=== PATIENT | female | born 1980 | race Caucasian/White ===

== ENCOUNTER 2018-11-10 20:20 | Emergency (ER) | payer MEDICAID ==
[~2018-11-10] VITALS: Ht 175.3 cm; Wt 143.0 kg
[2018-11-10] MEDS ORDERED: ONDANSETRON HCL 4MG/2ML INJ IV STA (23:49)
[2018-11-10] MEDS ORDERED: MORPHINE SULFATE 4 MG/ML CPJ (NOT FOR IM USE) IV STA (23:49)
[2018-11-10] MEDS ORDERED: SODIUM CHLORIDE 0.9% 1,000 ML IV ONE (23:49)
[2018-11-11] MEDS ORDERED: PIPERACILLIN/TAZ 3.375G PREMIX 50 ML IV ONE
[2018-11-11] MEDS ORDERED: VANCOMYCIN 1 G PREMIX 200 ML IV ONE
[2018-11-11 00:22] LABS: BASOPHILS % 0.4 % (0.0-2.0); EOSINOPHILS % 1.7 % (0.0-5.0); HEMATOCRIT. 35.9 % (36.0-48.0); HEMOGLOBIN. 12.4 g/dL (12.0-16.0); LYMPHOCYTES % 54.5 % (20.0-50.0); MEAN CORPUSCULAR HEMOGLOBIN 30.6 pg (28.0-32.0); MEAN CORPUSCULAR VOLUME 88.7 fL (81.0-99.0); MEAN PLATELET VOLUME 8.5 fl (7.4-10.4); MONOCYTES % 6.2 % (2.0-8.0); NEUTROPHILS % 37.2 % (40.0-76.0); PLATELET 204 x1000/uL (130-400); RED BLOOD CELL COUNT 4.05 mill/uL (4.2-5.4); RED CELL DISTRIBUTION WIDTH 14.5 % (11.6-14.6)
[2018-11-11 00:31] LABS: CHLORIDE 106 mEq/L (98-107)
[2018-11-11 02:43] VITALS: BP 131/81
== END 2018-11-11 02:45 | disposition home or self-care (01) ==
LOC: ER 20:20
DX: L02.211 Cutaneous abscess of abdominal wall (principal); L03.311 Cellulitis of abdominal wall; E11.9 Type 2 diabetes mellitus without complications; R03.0 Elevated blood-pressure reading, without diagnosis of hypertension
CPT/HCPCS: 36415; 80053; 83605; 84145; 85025; 87040; 87070; 87077; 87086; 87186; 87205; 96365; 96366; 96368; 96375; 99283; J2270; J2405; J2543; J3370; J7030

== ENCOUNTER 2020-12-31 11:27 | Emergency (ER) | payer OTHER, MEDICAID ==
[~2020-12-31] VITALS: Ht 175.3 cm; Wt 136.0 kg
[2020-12-31] MEDS ORDERED: METF-414 PO (11:38)
[2020-12-31 11:50] VITALS: BP 148/82
== END 2020-12-31 14:39 | disposition left against medical advice (07) ==
LOC: ER 11:27
DX: Z53.21 Procedure and treatment not carried out due to patient leaving prior to being seen by health care provider (principal); R10.9 Unspecified abdominal pain; E11.9 Type 2 diabetes mellitus without complications
CPT/HCPCS: 82962

== ENCOUNTER 2024-01-24 15:25 | Emergency (ER) | payer OTHER, MEDICAID ==
[~2024-01-24] VITALS: Ht 175.3 cm; Wt 125.0 kg
[~2024-01-24 15:25] MED LIST: METF-414 PO
[2024-01-24 15:34] VITALS: O2SAT 98
[2024-01-24] MEDS ORDERED: NAPR-1176 MT (19:15)
[2024-01-24] MEDS ORDERED: LIDO700A15 TP (19:15)
[2024-01-24] MEDS: KETOROLAC 15MG/ML VIAL IM ONE (19:25)
[2024-01-24] MEDS: LIDOCAINE 5% PATCH TOP SCH (19:26)
[2024-01-24 19:34] VITALS: BP 136/86; PULSE 97; RESP 16; TEMP 37.00296; O2SAT 98
== END 2024-01-24 19:35 | disposition home or self-care (01) ==
LOC: ER 15:25
DX: M25.512 Pain in left shoulder (principal); E11.9 Type 2 diabetes mellitus without complications; Z98.890 Other specified postprocedural states; V89.2XXA Person injured in unspecified motor-vehicle accident, traffic, initial encounter; Y93.89 Activity, other specified; Y92.89 Other specified places as the place of occurrence of the external cause; Y99.8 Other external cause status
CPT/HCPCS: 71045; 73030; 96372; 99284; J1885; Z7610